=== PATIENT | female | born 1980 | race Caucasian/White ===

== ENCOUNTER 2021-05-18 16:22 | Observation (INO) ==
[2021-05-18] MEDS ORDERED: NS 1,000 ML IV 1,000 ML IV ONE (16:41)
--- NOTE | 2021-05-18 16:41 | DR.URIAD ---
HPI Time Seen Time Seen by Provider: 05/18/21 16:31 Complaint Chief Complaint Doctors Comments: 40 y/o female brought in via EMS for evaluation of dyspnea. Ill since last week. Started with sinus congestion. Now with dry cough, shortness of breath, chest pain, left calf pain. Having sharp, stabbing pain of calf. Chest hurting in general, does not radiate, worse with cough, exertion. Associated with lightheadedness, dizziness. Denies nausea, vomiting and diarrhea. Has been having fever and chills, as well as generalized weakness. COVID-19 Coronavirus risk:travel/contact w/high risk person: No Has patient experienced Coronavirus symptoms: Yes Coronavirus symptoms experienced: Fever Reviewed Nurses Notes Reviewed: Yes Source History Provided: Patient Mode of Arrival Mode of Arrival: EMS PMH PMH Past Surgical History: Yes Surgical History: TEACHER EMOTIONALLY IMPAIRED Surgery Family History Family Medical History: Diabetes Mellitus, [place], Coronary Artery Disease and Hypertension Social History Do you use any recreational Drugs:: Yes (thc) Travel Risk Coronavirus risk:travel/contact w/high risk person: No Has patient experienced Coronavirus symptoms: Yes Coronavirus symptoms experienced: Fever ROS Review of Systems Constitutional: Chills, Fever, Malaise and Weakness Eyes: No Symptoms Reported ENTM: Nose Congestion Respiratoy: Dry Cough and Short of Breath Cardiovascular: Chest Pain and Palpitations Gastrointestinal/Abdominal: No Symptoms Reported Genitourinary: No Symptoms Reported Neurological: Weakness and Dizziness Musculoskeletal: Muscle Pain, Left and Leg Integumentary: No Symptoms Reported Hematologic/Lymphatic: No Symptoms Reported Endocrine: No Symptoms Reported Psychiatric: No Symptoms Reported All Other Systems: Reviewed and Negative PE Vital Signs Vitals: Temperature 99.5 F Pulse Rate 152 Respiratory Rate 23 Blood Pressure 129/86 O2 Sat by Pulse Oximetry 100 General Limitations: No Limitations General Appearance: Alert, In No Apparent Distress and Other (appears uncomfortable) Head Head Exam: Normal Inspection Eyes Eye exam: Normal Appearance ENT ENT Exam: Normal Exam TM/Canal Exam: Bilateral: Normal Nose Exam: Normal Nose Exam Throat Exam: Normal Inspection Neck Neck Exam: Normal Inspection and Full ROM Chest Chest Inspection: Normal Inspection Respiratory Respiratory Exam: Normal Lung Sounds Bilat; negative Accessory Muscle Use and Respiratory Distress Respiratory Exam: Bilateral: Clear to Auscultation Cardiovascular Cardiovascular Exam: Regular Rate, Tachycardia and Normal Heart Sounds Abdominal Exam Abdominal Exam: Normal Inspection, Normal Bowel Sounds and Soft; negative Tenderness Extremeties Extremities Exam: Normal Inspection, Full ROM and Tenderness (left calf) Back Back Exam: Normal Inspection; negative Tenderness Neurologic Neurological Exam: Alert, Oriented X3 and CN II-XII Intact Psychiatric Psychiatric Exam: Anxious Skin Skin Exam: Warm and Dry MDM Differential Diagnosis Differential Diagnosis: Pneumonia (PE, PTX, Covid, anxiety) and URI COURSE Treatment Treatment: 40 y/o female ill over the past week. Has a low grade temp, is tachycardic. W/u initiated. Given IV fluids. Tachycardia persists, given IV lorazepam, IV metoprolol. Doppler study of LLE done (tender, not swollen), was negative. 1843- Tachycardia persists. Was planning to do CTA of chest to r/o PE. 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 Covid negative. Given additional IV fluids, will add flu test. 1926 - discussed with her covering MD, Dr Ng. Will medicate with lovenox, and order a V/Q scan for tomorrow. Will cover with IV rocephin. Pt given additional dose of IV metoprolol. Presentation concerning for PE. Will do serial cardiac enzymes as well. ROR Labs Reviewed Result Diagrams: 05/18/21 17:07 05/18/21 17:07 Laboratory: WBC 16.5 X10^3/uL (3.6-10.0) H 05/18/21 17:07 RBC 4.65 X10^6/uL (3.5-5.4) 05/18/21 17:07 Hgb 10.8 g/dL (12.0-16.0) L 05/18/21 17:07 Hct 34.1 % (36.0-47.0) L 05/18/21 17:07 MCV 73.4 fL (80.0-100.0) L 05/18/21 17:07 MCH 23.2 pg (27.0-34.0) L 05/18/21 17:07 MCHC 31.5 g/dL (33.0-35.0) L 05/18/21 17:07 RDW 17.5 % (11.6-16.5) H 05/18/21 17:07 Plt Count 256 X10^3/uL (150.0-450.0) 05/18/21 17:07 Plt Count Comment Adequate (ADEQUATE) 05/18/21 17:07 MPV 7.1 fL (7.4-11.0) L 05/18/21 17:07 Neut % (Auto) 91.7 % (42.0-75.0) H 05/18/21 17:07 Lymph % (Auto) 1.8 % (21.0-51.0) L 05/18/21 17:07 [place] % (Auto) 5.0 % (0.0-13.0) 05/18/21 17:07 Eos % (Auto) 0.5 % (0.9-2.9) L 05/18/21 17:07 Baso % (Auto) 1.0 % (0.2-1.0) 05/18/21 17:07 Neut # (Auto) 15.2 x10^3/uL (2.2-4.8) H 05/18/21 17:07 Lymph # (Auto) 0.3 X10^3/uL (1.3-2.9) L 05/18/21 17:07 [place] # (Auto) 0.8 x10^3/uL (0.3-0.8) 05/18/21 17:07 Eos # (Auto) 0.1 x10^3/uL (0.0-0.2) 05/18/21 17:07 Baso # (Auto) 0.2 X10^3/uL (0.0-0.1) H 05/18/21 17:07 Absolute Nucleated RBC 0.0 /100WBC 05/18/21 17:07 Total Counted 100 05/18/21 17:07 Neutrophils % (Manual) 96 % (39-76) H 05/18/21 17:07 Lymphocytes % (Manual) 1 % (13-43) L 05/18/21 17:07 Monocytes % (Manual) 3 % (4-9) L 05/18/21 17:07 Plt Morphology Comment Normal (NORMAL) 05/18/21 17:07 RBC Morphology Normal (NORMAL) 05/18/21 17:07 Hypochromasia 1+ A 05/18/21 17:07 Anisocytosis Slight A 05/18/21 17:07 Microcytosis Slight A 05/18/21 17:07 [place] Cells Present 05/18/21 17:07 D-Dimer 1.67 ug/ml (0.0-0.57) H* 05/18/21 17:07 Sodium 136 mmol/L (136-145) 05/18/21 17:07 Corrected Sodium TNP 05/18/21 17:07 Potassium 3.2 mmol/L (3.5-5.1) L 05/18/21 17:07 Chloride 101 mmol/L (98-107) 05/18/21 17:07 Carbon Dioxide 26.0 mmol/L (21-32) 05/18/21 17:07 BUN 14 mg/dL (7-18) 05/18/21 17:07 Creatinine 1.34 mg/dL (0.55-1.02) H 05/18/21 17:07 Est GFR (MDRD) Af Amer 56 (>60) L 05/18/21 17:07 Est GFR (MDRD) Non-Af 46 (>60) L 05/18/21 17:07 Glucose 106 mg/dL (65-99) H 05/18/21 17:07 Calcium 8.1 mg/dL (8.5-10.1) L 05/18/21 17:07 Corrected Calcium 9.3 mg/dL (8.5-10.1) 05/18/21 17:07 Total Bilirubin 1.70 mg/dL (0.2-1.0) H 05/18/21 17:07 AST 52 Units/L (15-37) H 05/18/21 17:07 ALT 44 Units/L (12-78) 05/18/21 17:07 Alkaline Phosphatase 299 Units/L (46-116) H 05/18/21 17:07 Creatine Kinase 37 Units/L (26-192) 05/18/21 17:07 CK-MB (CK-2) < 1.0 ng/mL (0-4.0) 05/18/21 17:07 CK/CKMB % Calc 2.7 % (<4) 05/18/21 17:07 Troponin I < 0.02 ng/mL (0-1.5) 05/18/21 17:07 Total Protein 6.9 g/dL (6.4-8.2) 05/18/21 17:07 Albumin 2.5 g/dL (3.4-5.0) L 05/18/21 17:07 Globulin 4.4 g/dL (2.5-4.5) 05/18/21 17:07 Albumin/Globulin Ratio 0.6 Ratio (1.1-2.1) L 05/18/21 17:07 Lipase 40 Units/L (73-393) L 05/18/21 17:07 SARS CoV-2 RNA Rapid KATE Negative (NEGATIVE) 05/18/21 16:48 EKG Rate: 148 [place]: Normal Rhythm: ST Block: None Hypertrophy: None ST: Nonsp Opioid Opioid Risk Tool Age (Bhavik box if 16-45): Yes History of Preadolescent Sexual Abuse: No Total: 1 Total Score Risk Category: Low Risk Copyright: Arya GERBER predicting aberrant behaviors Diagnosis Discharge Problem: Atrial tachycardia Chest pain Qualifiers: Chest pain type: unspecified Qualified Code(s): R07.9 - Chest pain, unspecified
[2021-05-18] MEDS ORDERED: NS 1,000 ML IV 1,000 ML ONE ×2 (16:48→19:08)
[2021-05-18 17:20] LABS: BASOPHILS # (AUTO) 0.2 X10^3/uL (0.0-0.1); EOSINOPHILS # (AUTO) 0.1 x10^3/uL (0.0-0.2); EOSINOPHILS % (AUTO) 0.5 % (0.9-2.9); HEMATOCRIT 34.1 % (36.0-47.0); HEMOGLOBIN 10.8 g/dL (12.0-16.0); LYMPHOCYTES # (AUTO) 0.3 X10^3/uL (1.3-2.9); LYMPHOCYTES % (AUTO) 1.8 % (21.0-51.0); MEAN CORPUSCULAR HEMOGLOBIN 23.2 pg (27.0-34.0); MEAN CORPUSCULAR HGB CONC 31.5 g/dL (33.0-35.0); MEAN CORPUSCULAR VOLUME 73.4 fL (80.0-100.0); MEAN PLATELET VOLUME 7.1 fL (7.4-11.0); MONOCYTES # (AUTO) 0.8 x10^3/uL (0.3-0.8); NEUTROPHILS # (AUTO) 15.2 x10^3/uL (2.2-4.8); NEUTROPHILS % (AUTO) 91.7 % (42.0-75.0); PLATELET COUNT 256 X10^3/uL (150.0-450.0); RED BLOOD COUNT 4.65 X10^6/uL (3.5-5.4); RED CELL DISTRIBUTION WIDTH 17.5 % (11.6-16.5); WHITE BLOOD COUNT 16.5 X10^3/uL (3.6-10.0)
--- NOTE | 2021-05-18 17:32 | VAS ---
HISTORYLEFT CALF PAIN AND EDEMASTUDYLOWER EXT VENOUS, UNILATERALCOMPARISONNone availableTECHNIQUEMultiple aguilar scale and color flow Doppler images of the deep venous system were obtained of the left lower extremity.FINDINGSThe deep venous system of the left lower extremity was evaluated from the level of the common femoral vein through the popliteal vein. Normal color flow and augmentation can be observed. In addition, normal compression is seen throughout the deep venous system.IMPRESSIONNegative for DVT.Electronically signed by: JOSH VALLE (May 18, 2021 17:30:45)
--- NOTE | 2021-05-18 17:34 | RAD ---
CHEST, 1 VIEWHISTORY: Pt c/o fever, nausea, headache, shortness of breath and diarrhea since last Monday. She states the symptoms worsened on Monday.Study: Single view of the chest.Comparison:NoneFindings:The cardiomediastinal silhouette is normal.No focal consolidations, pleural effusions or pneumothorax. Osseous structures demonstrate no acute abnormality.IMPRESSION:1. No acute cardiopulmonary process.Electronically signed by: YENY SINGH (May 18, 2021 17:32:59)
[2021-05-18 17:37] LABS: ALANINE AMINOTRANSFERASE 44 Units/L (12-78); ALBUMIN 2.5 g/dL (3.4-5.0); ALKALINE PHOSPHATASE 299 Units/L (46-116); ASPARTATE AMINO TRANSFERASE 52 Units/L (15-37); BLOOD UREA NITROGEN 14 mg/dL (7-18); CALCIUM 8.1 mg/dL (8.5-10.1); CHLORIDE 101 mmol/L (98-107); CKMB % 2.7 % (<4); COR CA(FOR HYPOALB) 9.3 mg/dL (8.5-10.1); CREATINE KINASE 37 Units/L (26-192); CREATINE KINASE MB < 1.0 ng/mL (0-4.0); CREATININE 1.34 mg/dL (0.55-1.02); LIPASE 40 Units/L (73-393); SODIUM 136 mmol/L (136-145); TOTAL PROTEIN 6.9 g/dL (6.4-8.2); TROPONIN I < 0.02 ng/mL (0-1.5); eGFR NON BLACK RACES 46 (>60)
[2021-05-18] MEDS ORDERED: LOPRESSOR INJ 5 MG AMP IVP ONE ×2 (17:52→19:26)
[2021-05-18] MEDS ORDERED: ATIVAN INJ 2 MG VIAL IVP ONE (17:52)
[2021-05-18] MEDS ORDERED: LOPRESSOR INJ 5 MG AMP ONE (17:57)
[2021-05-18] MEDS ORDERED: ATIVAN INJ 2 MG VIAL ONE (17:58)
[2021-05-18 18:05] LABS: BURR CELLS PRESENT
[2021-05-18 18:06] LABS: PLATELET MORPHOLOGY COMMENT NORMAL (NORMAL)
[2021-05-18 18:07] LABS: ANISOCYTOSIS SLIGHT; HYPOCHROMASIA 1+; MICROCYTOSIS SLIGHT
[2021-05-18] MEDS ORDERED: NS 100 ML IV 100 ML ONE (18:36)
[2021-05-18] MEDS: NS 1,000 ML IV 1,000 ML IV ONE (19:11)
[2021-05-18] MEDS ORDERED: ROCEPHIN 1 GRAM IV PREMIX 1 G/50 ML IV.SOLN. IV ONE ×2 (19:25→20:00)
[2021-05-18 19:45] LABS: BILIRUBIN,URINE NEGATIVE (NEGATIVE); BLOOD/HEMOGLOBIN,URINE 2+ (NEGATIVE); GLUCOSE, URINE NEGATIVE (NEGATIVE); KETONES,URINE NEGATIVE (NEGATIVE); LEUKOCYTE ESTERASE ,URINE 2+ (NEGATIVE); NITRITES,URINE NEGATIVE (NEGATIVE); PROTEIN,URINE 2+ (NEGATIVE); UROBILINOGEN,URINE 1+ (NORMAL)
[2021-05-18 20:03] LABS: COLOR,URINE YELLOW (YELLOW)
[2021-05-18 20:04] LABS: APPEARANCE,URINE SLIGHTLY HAZY (CLEAR)
[2021-05-18 20:09] LABS: RBC,URINE 0-2 /HPF (0-3)
[2021-05-18 20:10] LABS: BACTERIA,URINE TRACE /HPF (NEGATIVE); SQUAMOUS EPITHELIAL CELL,UR FEW /HPF (NEGATIVE)
[2021-05-18] MEDS ORDERED: LOVENOX INJ 80 MG SYR SC ONE (20:38)
[2021-05-18] MEDS: LOVENOX INJ 80 MG SYR SC SCH ×2 (20:46→21:19)
[2021-05-18] MEDS ORDERED: TYLENOL 325 MG TAB PO ONE (22:09)
[2021-05-18] MEDS ORDERED: K-RIDER 10 MEQ/NS 100 ML 10 MEQ/100 ML BAG IV PRN (22:16)
[2021-05-18] MEDS ORDERED: POTASSIUM CHLORIDE LIQ 20 MEQ UDC PO PRN (22:16)
[2021-05-18] MEDS ORDERED: K-DUR TAB 20 MEQ PO PRN (22:16)
[2021-05-18] MEDS ORDERED: POTASSIUM CHL 60 MEQ/NS 0.45% 500 ML IV PRN (22:16)
[2021-05-18] MEDS ORDERED: POTASSIUM CHL 40 MEQ/NS 0.45% 500 ML IV PRN (22:16)
[2021-05-18] MEDS ORDERED: MICRO K EXTEN CAP 10 MEQ PO PRN (22:16)
[2021-05-18] MEDS: TYLENOL 325 MG TAB PO PRN (22:28)
[2021-05-18] MEDS: NS 1,000 ML IV 1,000 ML IV SCH (22:42)
[2021-05-18 22:55] LABS: CKMB % 3.1 % (<4); CREATINE KINASE 32 Units/L (26-192); CREATINE KINASE MB < 1.0 ng/mL (0-4.0); TROPONIN I < 0.02 ng/mL (0-1.5)
[2021-05-18] MEDS: NICOTINE PATCH TD SCH (22:59)
[2021-05-18] MEDS: KLOR-CON PO PRN (23:00)
[2021-05-18 23:01] VITALS: BMI 26.4
[2021-05-19] MEDS: MAGNESIUM SULFATE 1 GRAM/100 mL PREMIX 1 G/100 ML BAG IV PRN ×2 (00:27→01:44)
[2021-05-19] MEDS: TYLENOL 325 MG TAB PO PRN ×3 (03:42→20:00)
[2021-05-19 04:13] LABS: BASOPHILS % (AUTO) 0.3 % (0.2-1.0); EOSINOPHILS # (AUTO) 0.1 x10^3/uL (0.0-0.2); EOSINOPHILS % (AUTO) 0.3 % (0.9-2.9); HEMATOCRIT 30.1 % (36.0-47.0); HEMOGLOBIN 9.6 g/dL (12.0-16.0); LYMPHOCYTES # (AUTO) 0.4 X10^3/uL (1.3-2.9); LYMPHOCYTES % (AUTO) 2.7 % (21.0-51.0); MEAN CORPUSCULAR HEMOGLOBIN 23.5 pg (27.0-34.0); MEAN CORPUSCULAR HGB CONC 31.9 g/dL (33.0-35.0); MEAN CORPUSCULAR VOLUME 73.5 fL (80.0-100.0); MEAN PLATELET VOLUME 7.3 fL (7.4-11.0); MONOCYTES # (AUTO) 0.4 x10^3/uL (0.3-0.8); MONOCYTES % (AUTO) 2.5 % (0.0-13.0); NEUTROPHILS # (AUTO) 14.7 x10^3/uL (2.2-4.8); NEUTROPHILS % (AUTO) 94.2 % (42.0-75.0); PLATELET COUNT 224 X10^3/uL (150.0-450.0); RED CELL DISTRIBUTION WIDTH 17.7 % (11.6-16.5); WHITE BLOOD COUNT 15.6 X10^3/uL (3.6-10.0)
[2021-05-19 04:34] LABS: ALBUMIN 2.1 g/dL (3.4-5.0); CALCIUM 7.5 mg/dL (8.5-10.1); CARBON DIOXIDE 22.2 mmol/L (21-32); CKMB % 3.4 % (<4); CREATINE KINASE MB 1.2 ng/mL (0-4.0); CREATININE 1.38 mg/dL (0.55-1.02); TOTAL PROTEIN 6.2 g/dL (6.4-8.2); TROPONIN I 0.08 ng/mL (0-1.5)
[2021-05-19 04:40] LABS: BAND NEUTROPHILS % 8 % (0-10); PLATELET MORPHOLOGY COMMENT NORMAL (NORMAL)
[2021-05-19 04:41] LABS: ANISOCYTOSIS SLIGHT; BURR CELLS PRESENT; HYPOCHROMASIA 1+; MICROCYTOSIS SLIGHT; OVALOCYTES PRESENT
[2021-05-19] MEDS: NS 1,000 ML IV 1,000 ML IV SCH ×3 (05:05→21:21)
--- NOTE | 2021-05-19 06:01 | RAD ---
HISTORYChest painSTUDYChest AP [id number]/09/2021FINDINGSHear t size is normal. Dulce are normal. Lung renteria are clear. No pleural effusions are identified. Bony thorax is unremarkable.IMPRESSIONNo significant abnormality identifiedElectronically signed by: HORTENCIA GONZALES (May 19, 2021 05:59:30)
[2021-05-19] MEDS: CHECK PATCH XX SCH ×2 (09:13→21:08)
[2021-05-19] MEDS: NICOTINE PATCH TD SCH (09:14)
[2021-05-19] MEDS: LOVENOX INJ 80 MG SYR SC SCH ×2 (09:17→21:00)
[2021-05-19 10:17] LABS: CKMB % 2.8 % (<4); CREATINE KINASE 36 Units/L (26-192); CREATINE KINASE MB < 1.0 ng/mL (0-4.0); TROPONIN I 0.07 ng/mL (0-1.5)
[2021-05-19] MEDS ORDERED: TORADOL 30 MG VIAL IVP ONE (11:57)
[2021-05-19 13:58] LABS: ABG BASE EXCESS -2.4 mmol/L (-2.0-2.0); ABG HCO3 21.4 mmol/L (22-26)
[2021-05-19 14:00] LABS: ABG ALLEN TEST POS
[2021-05-19] MEDS ORDERED: TORADOL 30 MG VIAL ONE (14:18)
--- NOTE | 2021-05-19 15:30 | CT ---
CT head without contrastIndication: Severe headacheTECHNIQUEAxial images from the skullbase to the vertex without contrast. Coronal and sagittal reformats provided.COMPARISONNone availableFINDINGSThere is no acute intracranial hemorrhage, mass or mass effect. No extra-axial fluid collection or abnormal area of hypoattenuation to suggest infarction is identified. Ventricles and sulci are normal. No osseous lesion is identified. Paranasal sinuses and mastoid air cells are clear.IMPRESSIONNo acute intracranial hemorrhageElectronically signed by: ZAID EARL (May 19, 2021 15:28:24)
[2021-05-19] MEDS: PEPCID TAB 20 MG PO SCH ×2 (18:17→20:00)
--- NOTE | 2021-05-19 19:01 | DR.H&P ---
H&P - History & Physical for Day of: H&P Date: 05/18/21 - Chief Complaint Chief Complaint: dyspnea, tachycardia, bronchitis symptoms. - History of Present Illness History of Present Illness: Patient is a 40 y/o white female who is being admitt ed due to acute bronchitis, sinus tachycardia, elevated d dimer, r/o PE. Patient was brought in via EMS for evaluation of dyspnea. Reports symptoms present since last week. Reports sinus congestion, dry cough, sob, cp, calf pain. Denies radiation of chest pain. Denies nausea, vomiting and diarrhea. Has been having fever and chills, as well as generalized weakness. PCP Dr. Antunez. PMH: HTN (not on medications), BRYANNA, back pain, and multiple other conditions. Patient also reports a severe headache. Denies blurred vision, dizziness or any other associated symptoms. - Past Medical History Past Medical History: Anemia, Anxiety, Hypertension - Past Surgical History Surgical History: QUALITY CONTROL SUPERVISOR Surgery - Family History Family Medical History: Diabetes Mellitus, Cancer, [place], Coronary Artery Disease, Hypertension - Social History Does patient currently use any type of tobacco product: Yes Have you used tobacco products in the last 12 months: Yes Type of Tobacco Use: Cigarettes (1 pack per day) Packs per day or dips/chews per day: 1 pack per day Does any household member use tobacco: Yes Alcohol Use: Occasionally Drug Use: Marijuana Risks, benefits, and alternatives of opioids discussed: Yes Prescription drug monitoring program results: PDMP reviewed and no concerns identified - Medications Home Medications: Iodinated Contrast Media Allergy (Verified 05/18/21 20:43) shellfish derived Allergy (Verified 05/18/21 19:13) CONTINUE taking the following medications meloxicam 15 mg PO DAILY 05/18/21 [History] naproxen 500 mg PO BID 05/18/21 [History] tizanidine 4 mg PO TID 05/18/21 [History] - Review of Systems Constitutional: See HPI Eyes: See HPI ENT: See HPI Respiratory: See HPI Cardiovascular: See HPI Gastrointestinal: See HPI Genitourinary: See HPI Musculoskeletal: See HPI Skin: See HPI Neurological: See HPI - Physical Exam Vital Signs: Temperature 98.6 F Pulse Rate [Left Radial] 104 Pulse Rate 105 Respiratory Rate 20 Blood Pressure [Right Arm] 126/69 Blood Pressure 110/73 O2 Sat by Pulse Oximetry 100 Oriented: Normal, Time, Person, Place Eyes: Normal Ear: Normal Nose: Normal Throat: Normal Respiratory: Rhonchi Throughout Cardiovascular: Tachycardia : Normal Auscultation: Bowel Sounds: Normal Palpation: Normal Tenderness: Normal Skin: Normal Musculoskeletal: Normal Psychiatric: Anxiety Mood Description: Calm, Anxious Affect: Anxious Speech Pattern: Clear, Appropriate - Assessment/Plan (1) Sinus tachycardia Status: Acute Plan: IV fluids (2) Acute bronchitis Status: Acute Plan: IV abx. Cultures pending. Repeat labs in am. resume home meds (3) Chest pain Qualifiers: Chest pain type: unspecified Qualified Code(s): R07.9 - Chest pain, unspecified Status: Acute Plan: serial cardiacs an EKGs. Tele (4) Leukocytosis Status: Acute Plan: Repeat labs in am - Allergies Allergies/Adverse Reactions: Allergies Allergy/AdvReac Type Severity Reaction Status Date / Time Iodinated Contrast Media Allergy Verified 05/18/21 20:43 shellfish derived Allergy Verified 05/18/21 19:13
--- NOTE | 2021-05-19 19:19 | PCM.PROG ---
Progress Note - Subjective Subjective: CP, SOB - Past Medical Family Social History Past Med/Fam/Surg Hx: No changes since H&P Allergies: Allergies Iodinated Contrast Media Allergy (Verified 05/18/21 20:43) shellfish derived Allergy (Verified 05/18/21 19:13) - Review of Systems ROS: No change since H&P - Vital Signs and I&O's Vital Signs: Temperature 98.6 F Pulse Rate [Left Radial] 104 Pulse Rate 105 Respiratory Rate 20 Blood Pressure [Right Arm] 126/69 Blood Pressure 110/73 O2 Sat by Pulse Oximetry 100 Intake and Output: Intake & Output 05/16/21 05/17/21 05/18/21 05/19/21 23:59 23:59 23:59 23:59 Intake Total 125 / 125 3384 / 3384 Balance 125 / 125 3384 / 3384 - Physical Exam Oriented: Normal, Time, Person, Place Eyes: Normal Ear: Normal Nose: Normal Throat: Normal Respiratory: Rhonchi Cardiovascular: Tachycardia : Normal Auscultation: Bowel Sounds: Normal Palpation: Normal Tenderness: Normal Skin: Normal Musculoskeletal: Normal Psychiatric: Anxiety Mood Description: Calm, Anxious Affect: Anxious Speech Pattern: Clear, Appropriate - Laboratory and Diagnostics Result Diagrams: 05/19/21 03:33 05/19/21 03:33 Labs: 05/18/21 19:19 Urine,Catheterized Urine Culture - Preliminary Laboratory WBC 15.6 X10^3/uL (3.6-10.0) H 05/19/21 03:33 RBC 4.10 X10^6/uL (3.5-5.4) 05/19/21 03:33 Hgb 9.6 g/dL (12.0-16.0) L 05/19/21 03:33 Hct 30.1 % (36.0-47.0) L 05/19/21 03:33 MCV 73.5 fL (80.0-100.0) L 05/19/21 03:33 MCH 23.5 pg (27.0-34.0) L 05/19/21 03:33 MCHC 31.9 g/dL (33.0-35.0) L 05/19/21 03:33 RDW 17.7 % (11.6-16.5) H 05/19/21 03:33 Plt Count 224 X10^3/uL (150.0-450.0) 05/19/21 03:33 Plt Count Comment Adequate (ADEQUATE) 05/19/21 03:33 MPV 7.3 fL (7.4-11.0) L 05/19/21 03:33 Neut % (Auto) 94.2 % (42.0-75.0) H 05/19/21 03:33 Lymph % (Auto) 2.7 % (21.0-51.0) L 05/19/21 03:33 [place] % (Auto) 2.5 % (0.0-13.0) 05/19/21 03:33 Eos % (Auto) 0.3 % (0.9-2.9) L 05/19/21 03:33 Baso % (Auto) 0.3 % (0.2-1.0) 05/19/21 03:33 Neut # (Auto) 14.7 x10^3/uL (2.2-4.8) H 05/19/21 03:33 Lymph # (Auto) 0.4 X10^3/uL (1.3-2.9) L 05/19/21 03:33 [place] # (Auto) 0.4 x10^3/uL (0.3-0.8) 05/19/21 03:33 Eos # (Auto) 0.1 x10^3/uL (0.0-0.2) 05/19/21 03:33 Baso # (Auto) 0.0 X10^3/uL (0.0-0.1) 05/19/21 03:33 Absolute Nucleated RBC 0.0 /100WBC 05/19/21 03:33 Total Counted 100 05/19/21 03:33 Neutrophils % (Manual) 84 % (39-76) H 05/19/21 03:33 Band Neutrophils % 8 % (0-10) 05/19/21 03:33 Lymphocytes % (Manual) 5 % (13-43) L 05/19/21 03:33 Monocytes % (Manual) 3 % (4-9) L 05/19/21 03:33 Plt Morphology Comment Normal (NORMAL) 05/19/21 03:33 RBC Morphology Abnormal (NORMAL) A 05/19/21 03:33 Hypochromasia 1+ A 05/19/21 03:33 Anisocytosis Slight A 05/19/21 03:33 Microcytosis Slight A 05/19/21 03:33 Ovalocytes Present 05/19/21 03:33 [place] Cells Present 05/19/21 03:33 D-Dimer 1.67 ug/ml (0.0-0.57) H* 05/18/21 17:07 Sample Site Rr 05/19/21 13:52 ABG pH 7.420 (7.35-7.45) 05/19/21 13:52 ABG pCO2 33.0 mmHg (35.0-45.0) L 05/19/21 13:52 ABG pO2 114.0 mmHg (80.0-100.0) H 05/19/21 13:52 ABG HCO3 21.4 mmol/L (22-26) L 05/19/21 13:52 ABG O2 Saturation 99.0 % (90-100) 05/19/21 13:52 ABG Base Excess -2.4 mmol/L (-2.0-2.0) L 05/19/21 13:52 Jarad Test Pos 05/19/21 13:52 A-a Gradient -6.0 mmHg 05/19/21 13:52 FiO2 21.0 05/19/21 13:52 Blood Gas Comments Pt jigar well. sd 05/19/21 13:52 Sodium 135 mmol/L (136-145) L 05/19/21 03:33 Corrected Sodium 136 mmol/L (136-145) 05/19/21 03:33 Potassium 4.1 mmol/L (3.5-5.1) 05/19/21 03:33 Chloride 103 mmol/L (98-107) 05/19/21 03:33 Carbon Dioxide 22.2 mmol/L (21-32) 05/19/21 03:33 BUN 12 mg/dL (7-18) 05/19/21 03:33 Creatinine 1.38 mg/dL (0.55-1.02) H 05/19/21 03:33 Est GFR (MDRD) Af Amer 54 (>60) L 05/19/21 03:33 Est GFR (MDRD) Non-Af 45 (>60) L 05/19/21 03:33 Glucose 152 mg/dL (65-99) H 05/19/21 03:33 Calcium 7.5 mg/dL (8.5-10.1) L 05/19/21 03:33 Corrected Calcium 9.0 mg/dL (8.5-10.1) 05/19/21 03:33 Magnesium 1.7 mg/dL (1.7-2.9) 05/18/21 22:25 Total Bilirubin 1.40 mg/dL (0.2-1.0) H 05/19/21 03:33 AST 37 Units/L (15-37) 05/19/21 03:33 ALT 38 Units/L (12-78) 05/19/21 03:33 Alkaline Phosphatase 275 Units/L (46-116) H 05/19/21 03:33 Creatine Kinase 36 Units/L (26-192) 05/19/21 09:46 CK-MB (CK-2) < 1.0 ng/mL (0-4.0) 05/19/21 09:46 CK/CKMB % Calc 2.8 % (<4) 05/19/21 09:46 Troponin I 0.07 ng/mL (0-1.5) 05/19/21 09:46 Total Protein 6.2 g/dL (6.4-8.2) L 05/19/21 03:33 Albumin 2.1 g/dL (3.4-5.0) L 05/19/21 03:33 Globulin 4.1 g/dL (2.5-4.5) 05/19/21 03:33 Albumin/Globulin Ratio 0.5 Ratio (1.1-2.1) L 05/19/21 03:33 Lipase 40 Units/L (73-393) L 05/18/21 17:07 Specimen Type Catherized urine 05/18/21 19:19 Urine Color Yellow (YELLOW) 05/18/21 19:19 Urine Appearance Slightly hazy (CLEAR) 05/18/21 19:19 Urine pH 8.0 (5.0 - 8.0) 05/18/21 19:19 Ur Specific [place] 1.015 (1.000-1.030) 05/18/21 19:19 Urine Protein 2+ (NEGATIVE) 05/18/21 19:19 Urine Glucose (UA) Negative (NEGATIVE) 05/18/21 19:19 Urine Ketones Negative (NEGATIVE) 05/18/21 19:19 Urine Occult Blood 2+ (NEGATIVE) 05/18/21 19:19 Urine Nitrite Negative (NEGATIVE) 05/18/21 19:19 Urine Bilirubin Negative (NEGATIVE) 05/18/21 19:19 Urine Urobilinogen 1+ (NORMAL) 05/18/21 19:19 Ur Leukocyte Esterase 2+ (NEGATIVE) 05/18/21 19:19 Urine RBC 0-2 /HPF (0-3) 05/18/21 19:19 Urine WBC 10-20 /HPF (0-5) A 05/18/21 19:19 Ur Squamous Epith Cells Few /HPF (NEGATIVE) 05/18/21 19:19 Urine Bacteria Trace /HPF (NEGATIVE) 05/18/21 19:19 Ur Culture Indicated? Yes/culture set up 05/18/21 19:19 Urine Opiates Screen Negative (NEG=<300) 05/18/21 19:19 Urine Methadone Screen Negative (NEG=<300) 05/18/21 19:19 Ur Barbiturates Screen Negative (NEG=<200) 05/18/21 19:19 Ur Phencyclidine Scrn Negative (NEG=<25) 05/18/21 19:19 Ur Amphetamines Screen Negative (NEG=<1000) 05/18/21 19:19 U Benzodiazepines Scrn Negative (NEG=<200) 05/18/21 19:19 Urine Cocaine Screen Negative (NEG=<300) 05/18/21 19:19 U Marijuana (THC) Screen Negative (NEG=<50) 05/18/21 19:19 SARS-CoV-2 (PCR) Negative (NEGATIVE) 05/18/21 19:30 Influenza Type A (PCR) Negative (NEGATIVE) 05/18/21 19:30 Influenza Type B (PCR) Negative (NEGATIVE) 05/18/21 19:30 RSV (PCR) Negative (NEGATIVE) 05/18/21 19:30 SARS CoV-2 RNA Rapid KATE Negative (NEGATIVE) 05/18/21 16:48 - Plan (1) Sinus tachycardia Status: Acute Plan: IV fluids. R/O PE. Doppler negative. NM lung scan pending in am. GFR not good enough for CTA chest. (2) Acute bronchitis Status: Acute Plan: IV abx. Cultures pending. Repeat labs in am. resume home meds (3) Chest pain Status: Acute Qualifiers: Chest pain type: unspecified Qualified Code(s): R07.9 - Chest pain, unspecified Plan: serial cardiacs an EKGs. Tele (4) Leukocytosis Status: Acute Plan: Repeat labs in am
[2021-05-19] MEDS ORDERED: NEURONTIN TAB 600 MG ONE (20:10)
[2021-05-19] MEDS ORDERED: ZANAFLEX ONE (20:10)
[2021-05-19] MEDS ORDERED: ROCEPHIN VIAL 1 GRAM 1 G in NS 100 ML IV + SPIKE MINIBAG* 100 ML IV SCH (21:00)
[2021-05-19] MEDS: ZANAFLEX PO SCH (21:00)
[2021-05-19] MEDS: NEURONTIN CAP 300 MG PO SCH (21:00)
[2021-05-19] MEDS: NORCO 5/325 MG TAB PO PRN (22:00)
[2021-05-20] MEDS: NS 1,000 ML IV 1,000 ML IV SCH ×3 (00:20→16:29)
[2021-05-20] MEDS: NEURONTIN CAP 300 MG PO SCH ×2 (05:18→15:30)
[2021-05-20] MEDS: ZANAFLEX PO SCH ×2 (05:19→15:50)
[2021-05-20] MEDS: NORCO 5/325 MG TAB PO PRN ×2 (05:50→10:54)
[2021-05-20 05:56] LABS: BASOPHILS % (AUTO) 0.2 % (0.2-1.0); EOSINOPHILS # (AUTO) 0.1 x10^3/uL (0.0-0.2); EOSINOPHILS % (AUTO) 1.2 % (0.9-2.9); LYMPHOCYTES # (AUTO) 0.5 X10^3/uL (1.3-2.9); MEAN CORPUSCULAR HEMOGLOBIN 23.9 pg (27.0-34.0); MEAN CORPUSCULAR HGB CONC 33.3 g/dL (33.0-35.0); MEAN CORPUSCULAR VOLUME 71.9 fL (80.0-100.0); MEAN PLATELET VOLUME 7.7 fL (7.4-11.0); MONOCYTES # (AUTO) 0.5 x10^3/uL (0.3-0.8); MONOCYTES % (AUTO) 4.9 % (0.0-13.0); NEUTROPHILS # (AUTO) 9.5 x10^3/uL (2.2-4.8); NEUTROPHILS % (AUTO) 88.7 % (42.0-75.0); PLATELET COUNT 228 X10^3/uL (150.0-450.0); RED BLOOD COUNT 3.76 X10^6/uL (3.5-5.4); WHITE BLOOD COUNT 10.7 X10^3/uL (3.6-10.0)
[2021-05-20 06:14] LABS: ALANINE AMINOTRANSFERASE 27 Units/L (12-78); ALBUMIN 1.8 g/dL (3.4-5.0); ALKALINE PHOSPHATASE 306 Units/L (46-116); ASPARTATE AMINO TRANSFERASE 20 Units/L (15-37); BLOOD UREA NITROGEN 12 mg/dL (7-18); CALCIUM 7.4 mg/dL (8.5-10.1); CHLORIDE 105 mmol/L (98-107); COR CA(FOR HYPOALB) 9.2 mg/dL (8.5-10.1); CREATININE 1.38 mg/dL (0.55-1.02); SODIUM 136 mmol/L (136-145); TOTAL PROTEIN 5.9 g/dL (6.4-8.2); eGFR NON BLACK RACES 45 (>60)
[2021-05-20] MEDS: KLOR-CON PO PRN (06:26)
[2021-05-20 06:32] LABS: ANISOCYTOSIS SLIGHT; BURR CELLS PRESENT; PLATELET MORPHOLOGY COMMENT NORMAL (NORMAL); TARGET CELLS PRESENT
[2021-05-20] MEDS ORDERED: PEPCID TAB 20 MG PO SCH (09:00)
[2021-05-20] MEDS: LOVENOX INJ 80 MG SYR SC SCH (09:37)
[2021-05-20] MEDS: CHECK PATCH XX SCH (09:38)
[2021-05-20] MEDS: NICOTINE PATCH TD SCH (09:38)
--- NOTE | 2021-05-20 13:21 | NM ---
HISTORY: [Dyspnea, tachycardia]Study: Nuclear Medicine Perfusion StudyComparison: [] Chest radiograph from same dayTechnique: After the administration of [5.7] mCi of technetium 99m MAA, anterior, posterior, and lateral perfusion images were submitted.Findings:[Evaluation of perfusion physiology demonstrates no significant segmental or subsegmental defect within either lung to suggest acute pulmonary embolus]. [IMPRESSION:Low probability for acute PE.Electronically signed by: BRENDA FRANCE (May 20, 2021 13:18:42)
--- NOTE | 2021-05-20 13:29 | RAD ---
HISTORYDYSPNEA, TACHYCARDIASTUDYCHEST, 1 [id number]/2021FINDINGSThe lungs are clear. No pneumothorax or significant effusion.Heart size is normal.Bones are unremarkable.EKG leads are noted.IMPRESSION1. No significant abnormalityElectronically signed by: Jaguar Glasgow (May 20, 2021 13:28:02)
[2021-05-20 15:16] VITALS: BP 125/75
== END 2021-05-20 17:00 | disposition home or self-care (01) ==
LOC: MED/SURG 16:22 → ER 16:22 → MED/SURG 21:40
PROVIDERS: ADMIT Obstetrics & Gynecology Obstetrics; ATTEND Internal Medicine
DX: R07.89 Other chest pain; Z20.822 Contact with and (suspected) exposure to COVID-19; R00.0 Tachycardia, unspecified; B96.29 Other Escherichia coli [E. coli] as the cause of diseases classified elsewhere; J20.8 Acute bronchitis due to other specified organisms; R06.02 Shortness of breath